=== PATIENT | male | born 1940 | race Caucasian/White ===

== ENCOUNTER 2017-12-11 20:08 | Observation (INO) | payer MEDICARE ==
[~2017-12-11] VITALS: Ht 170.2 cm; Wt 76.6 kg
[~2017-12-11 20:08] MED LIST: ARICEPT10 MG PO; ASPIRIN 81M81 MG/TA2 PO; BENAZEPRIL HCL/1 TAB PO; EXELON 1.5MG1.5 MG PO; FLOMAX 0.40.4 MG/CAP PO; HYDROXYZINE10 M1 PO; HYZAAR 25 MG-101 TAB PO; MACROBID 1100 MG/CAP PO; NAMENDA XR 28MG PO; NORCO 325 MG-51 TAB PO; PERCOCET 325 MG1 TA2 PO; SIMVASTATIN40 MG PO; ULTRAM 50MG TAB50 MG PO; ZOLOFT 25MG25 MG PO; ZOLOFT 50MG50 MG PO
[2017-12-11 20:37] LABS: BASO % 0.4 % (0.0-2.0); EOS # 0.2 (0.0-0.7); EOS % 1.9 % (0-4.0); GRAN # 7.4 (1.4-6.5); GRAN % 73.1 % (42.2-75.2); HEMATOCRIT 43.4 % (42.0-52.0); HEMOGLOBIN 14.5 g/dl (13.5-18.0); LYMPH # 1.8 (1.2-3.4); LYMPH % 17.9 % (20.0-51.0); MEAN CELL VOLUME 95 fl (80.0-100.0); MEAN CORPUSCULAR HEMOGLOBIN 32 pg (27.0-31.0); MEAN CORPUSCULAR HGB CONC 33 g/dl (33.0-37.0); MEAN PLATELET VOLUME 9.9 fl (7.4-10.4); MONO # 0.7 (0.1-0.6); MONO % 6.5 % (1.7-9.3); PLATELET COUNT 213 K/mm3 (130-400); RED BLOOD COUNT 4.57 M/mm3 (4.20-5.60); REDCELL DISTRIBUTION WIDTH-CV 13.3 % (11.5-14.5)
[2017-12-11 20:50] LABS: COLLECTION METHOD CLEAN CATCH
[2017-12-11 21:01] LABS: ALANINE AMINOTRANSFERASE 40 U/L (21-72); ALBUMIN 4.1 gm/dL (3.5-5.0); ANION GAP 10 mmol/L (7-16); BILIRUBIN,TOTAL 0.6 mg/dL (0.0-1.0); BLOOD UREA NITROGEN 30 mg/dL (9-20); CALCIUM 10.7 mg/dL (8.4-10.2); CARBON DIOXIDE 26 mmol/L (22-30); CHLORIDE 98 mmol/L (98-107); CREATININE, serum 0.85 mg/dL (0.66-1.25); GLUCOSE 111 mg/dL (74-106); POTASSIUM 3.3 mmol/L (3.4-5.0); SODIUM 134 mmol/L (137-145); TOTAL PROTEIN 7.4 gm/dL (6.4-8.2)
[2017-12-11 21:05] LABS: AST,SGOT 25 U/L (15-37)
[2017-12-11 21:06] LABS: ALKALINE PHOSPHATASE 130 U/L (50-136)
[2017-12-11 21:12] LABS: TROPONIN-I < 0.012 ng/mL (0.000-0.034)
[2017-12-11 21:22] LABS: MUCOUS Present /lpf; PH 5 (5-8); SQUAMOUS EPITHELIAL None Seen /hpf; URINE APPEARANCE Clear; URINE BACTERIA None Seen /hpf; URINE BILIRUBIN Negative (NEGATIVE); URINE BLOOD Negative (NEGATIVE); URINE COLOR Yellow; URINE GLUCOSE Negative (NEGATIVE); URINE KETONE Negative (NEGATIVE); URINE LEUKOCYTE ESTERASE Negative (NEGATIVE); URINE NITRATE Negative (NEGATIVE); URINE PROTEIN(semi-quant) Negative (NEGATIVE); URINE RBC 0-2 /hpf; URINE UROBILINOGEN Negative (NEGATIVE)
[2017-12-11] MEDS ORDERED: HYZAAR 25 MG-101 TAB PO (21:23)
[2017-12-11] MEDS ORDERED: NORVASC 5MG5 MG/TAB PO (21:24)
[2017-12-11] MEDS ORDERED: LUNESTA3 MG PO (21:25)
[2017-12-11] MEDS ORDERED: LIPITOR 40MG TA40 MG PO (21:25)
[2017-12-11] MEDS ORDERED: XYZAL5 MG PO (21:26)
[2017-12-12] MEDS ORDERED: EXELON6 MG PO (00:12)
[2017-12-12] MEDS ORDERED: ZOLOFT 100MG100 MG PO (00:13)
[2017-12-12 00:42] VITALS: BP 109/36; PULSE 104; TEMP 98.2
[2017-12-12 01:12] LABS: MAGNESIUM 1.5 mg/dL (1.6-2.3)
[2017-12-12 01:38] LABS: THYROID STIMULATING HORMONE 1.83 uIU/mL (0.465-4.680)
[2017-12-12 03:18] VITALS: BP 138/50; PULSE 63; TEMP 98.5
[2017-12-12 07:51] LABS: BASO # 0.1 (0.0-0.2); BASO % 0.9 % (0.0-2.0); EOS # 0.3 (0.0-0.7); EOS % 3.8 % (0-4.0); GRAN # 4.7 (1.4-6.5); GRAN % 63.3 % (42.2-75.2); HEMATOCRIT 41.2 % (42.0-52.0); HEMOGLOBIN 13.6 g/dl (13.5-18.0); LYMPH # 1.7 (1.2-3.4); LYMPH % 22.8 % (20.0-51.0); MEAN CELL VOLUME 96 fl (80.0-100.0); MEAN CORPUSCULAR HEMOGLOBIN 32 pg (27.0-31.0); MEAN CORPUSCULAR HGB CONC 33 g/dl (33.0-37.0); MEAN PLATELET VOLUME 10.1 fl (7.4-10.4); MONO # 0.7 (0.1-0.6); MONO % 8.8 % (1.7-9.3); PLATELET COUNT 209 K/mm3 (130-400); RED BLOOD COUNT 4.31 M/mm3 (4.20-5.60); REDCELL DISTRIBUTION WIDTH-CV 13.2 % (11.5-14.5)
[2017-12-12 08:02] LABS: CALCIUM 9.6 mg/dL (8.4-10.2); CREATININE, serum 0.72 mg/dL (0.66-1.25)
[2017-12-12 08:18] VITALS: BP 122/58; PULSE 58; TEMP 98.2
[2017-12-12 11:34] VITALS: BP 141/71; PULSE 63; TEMP 98.2
[2017-12-12 14:44] LABS: ALCOHOL(ethanol),MEDICAL < 10 mg/dL
[2017-12-12 15:58] VITALS: BP 101/44; PULSE 61; TEMP 98.5
[2017-12-12 18:52] VITALS: BP 115/67; PULSE 56; TEMP 98.4
[2017-12-13 00:29] VITALS: BP 106/59; PULSE 62; TEMP 98.5
[2017-12-13 04:28] VITALS: BP 127/78; PULSE 55; TEMP 98.5
[2017-12-13 07:39] VITALS: BP 106/67; PULSE 51; TEMP 98.7
[2017-12-13 10:55] LABS: BASO % 0.6 % (0.0-2.0); EOS # 0.3 (0.0-0.7); EOS % 3.6 % (0-4.0); GRAN # 4.6 (1.4-6.5); GRAN % 66.7 % (42.2-75.2); HEMATOCRIT 40.3 % (42.0-52.0); HEMOGLOBIN 13.1 g/dl (13.5-18.0); LYMPH # 1.4 (1.2-3.4); LYMPH % 20.7 % (20.0-51.0); MEAN CELL VOLUME 96 fl (80.0-100.0); MEAN CORPUSCULAR HEMOGLOBIN 31 pg (27.0-31.0); MEAN CORPUSCULAR HGB CONC 33 g/dl (33.0-37.0); MEAN PLATELET VOLUME 9.8 fl (7.4-10.4); MONO # 0.6 (0.1-0.6); MONO % 8.1 % (1.7-9.3); PLATELET COUNT 200 K/mm3 (130-400); RED BLOOD COUNT 4.19 M/mm3 (4.20-5.60); REDCELL DISTRIBUTION WIDTH-CV 13.3 % (11.5-14.5)
[2017-12-13 11:06] LABS: CALCIUM 9.8 mg/dL (8.4-10.2); CREATININE, serum 0.71 mg/dL (0.66-1.25); POTASSIUM 3.6 mmol/L (3.4-5.0)
[2017-12-13 11:52] VITALS: BP 147/60; PULSE 65; TEMP 97.9
[2017-12-13 16:19] VITALS: BP 123/67; PULSE 60; TEMP 98.2
[2017-12-13 19:39] VITALS: BP 133/64; PULSE 60; TEMP 98.9
[2017-12-14 00:02] VITALS: BP 114/53; PULSE 69; TEMP 98.3
[2017-12-14 07:56] VITALS: BP 146/68; PULSE 60; TEMP 98.6
[2017-12-14 11:31] VITALS: BP 124/64; PULSE 65; TEMP 98.3
[2017-12-14 14:26] LABS: FOLATE (FOLIC ACID) 6.8 ng/mL (7.0-31.4)
[2017-12-14 16:36] VITALS: BP 119/67; PULSE 64; TEMP 97.4
[2017-12-14 20:17] VITALS: BP 134/71; PULSE 68; TEMP 98.5
[2017-12-15 08:00] VITALS: BP 115/71; PULSE 65; TEMP 97.9
[2017-12-15] MEDS ORDERED: SEROQUEL 1100 MG/TAB PO (09:14)
[2017-12-15] MEDS ORDERED: FOLIC ACID 11 MG/TA1 PO (09:15)
== END 2017-12-15 11:40 | disposition home or self-care (01) ==
LOC: COL.ER 20:08 → MEDICAL 22:04
PROVIDERS: Emergency Medicine; Internal Medicine; Nurse Practitioner Family
DX: T42.6X1A Poisoning by other antiepileptic and sedative-hypnotic drugs, accidental (unintentional), initial encounter (principal); F05 Delirium due to known physiological condition; E87.1 Hypo-osmolality and hyponatremia; G47.00 Insomnia, unspecified; F01.50 Vascular dementia, unspecified severity, without behavioral disturbance, psychotic disturbance, mood disturbance, and anxiety; F03.90 Unspecified dementia, unspecified severity, without behavioral disturbance, psychotic disturbance, mood disturbance, and anxiety; Z23 Encounter for immunization; I10 Essential (primary) hypertension; E78.5 Hyperlipidemia, unspecified; Z87.891 Personal history of nicotine dependence; E87.6 Hypokalemia; E83.52 Hypercalcemia; R00.1 Bradycardia, unspecified; Z86.73 Personal history of transient ischemic attack (TIA), and cerebral infarction without residual deficits; F32.9 Major depressive disorder, single episode, unspecified; Z79.899 Other long term (current) drug therapy; Z79.82 Long term (current) use of aspirin; Z82.69 Family history of other diseases of the musculoskeletal system and connective tissue; R53.81 Other malaise
CPT/HCPCS: 99222-AI; 99232-AI; 99239; A9585; G0008; G0378; G8987-GO; G8988-GO; J1644; J3480; J7030

== ENCOUNTER 2018-11-26 17:18 | Emergency (ER) | payer MEDICARE ==
[~2018-11-26] VITALS: Ht 167.6 cm; Wt 71.8 kg
[~2018-11-26 17:18] MED LIST changes: +EXELON6 MG PO; +FOLIC ACID 11 MG/TA1 PO; +LIPITOR 40MG TA40 MG PO; +LUNESTA3 MG PO; +NORVASC 5MG5 MG/TAB PO; +SEROQUEL 1100 MG/TAB PO; +XYZAL5 MG PO; +ZOLOFT 100MG100 MG PO
[2018-11-26 17:20] VITALS: TEMP 97.7
[2018-11-26] MEDS ORDERED: NORVASC 5MG5 MG/TAB PO (17:42)
[2018-11-26 18:38] LABS: BASO % 0.3 % (0.0-2.0); EOS # 0.1 (0.0-0.7); EOS % 0.8 % (0-4.0); GRAN # 9.2 (1.4-6.5); GRAN % 81.9 % (42.2-75.2); HEMATOCRIT 49.2 % (42.0-52.0); HEMOGLOBIN 16.1 g/dl (13.5-18.0); LYMPH # 1.2 (1.2-3.4); LYMPH % 10.9 % (20.0-51.0); MEAN CELL VOLUME 97 fl (80.0-100.0); MEAN CORPUSCULAR HEMOGLOBIN 32 pg (27.0-31.0); MEAN CORPUSCULAR HGB CONC 33 g/dl (33.0-37.0); MEAN PLATELET VOLUME 10.7 fl (7.4-10.4); MONO # 0.6 (0.1-0.6); MONO % 5.7 % (1.7-9.3); PLATELET COUNT 204 K/mm3 (130-400); RED BLOOD COUNT 5.07 M/mm3 (4.20-5.60); REDCELL DISTRIBUTION WIDTH-CV 13.3 % (11.5-14.5)
[2018-11-26 18:40] LABS: INR 1.1 (0.8-3.0); PROTHROMBIN TIME 12.3 SECONDS (9.7-12.8)
[2018-11-26 18:45] LABS: ALANINE AMINOTRANSFERASE 24 U/L (21-72); ALBUMIN 4.3 gm/dL (3.5-5.0); ALKALINE PHOSPHATASE 153 U/L (50-136); ANION GAP 12 mmol/L (7-16); AST,SGOT 29 U/L (15-37); BILIRUBIN,TOTAL 0.6 mg/dL (0.0-1.0); BLOOD UREA NITROGEN 23 mg/dL (9-20); CALCIUM 10.7 mg/dL (8.4-10.2); CARBON DIOXIDE 24 mmol/L (22-30); CHLORIDE 105 mmol/L (98-107); CREATININE, serum 0.98 (0.66-1.25); GLUCOSE 103 mg/dL (74-106); POTASSIUM 3.8 mmol/L (3.4-5.0); SODIUM 141 mmol/L (137-145); TOTAL PROTEIN 7.5 gm/dL (6.4-8.2)
[2018-11-26 19:00] LABS: TROPONIN-I < 0.012 ng/mL (0.000-0.035)
[2018-11-26 19:33] VITALS: BP 124/80; PULSE 80
== END 2018-11-26 19:59 | disposition home or self-care (01) ==
LOC: COL.ER 17:18
PROVIDERS: Emergency Medicine
DX: S00.03XA Contusion of scalp, initial encounter (principal); F03.90 Unspecified dementia, unspecified severity, without behavioral disturbance, psychotic disturbance, mood disturbance, and anxiety; E78.5 Hyperlipidemia, unspecified; R40.2412 Glasgow coma scale score 13-15, at arrival to emergency department; W19.XXXA Unspecified fall, initial encounter; Y92.511 Restaurant or cafe as the place of occurrence of the external cause

== ENCOUNTER 2019-06-02 15:06 | Inpatient (IN) | payer MEDICARE ==
[~2019-06-02] VITALS: Ht 177.8 cm; Wt 63.4 kg
[2019-06-02 15:29] LABS: BASO # 0.1 (0.0-0.2); BASO % 0.4 % (0.0-2.0); EOS # 0.2 (0.0-0.7); EOS % 1.5 % (0-4.0); GRAN # 9.9 (1.4-6.5); GRAN % 78.4 % (42.2-75.2); HEMATOCRIT 45.5 % (42.0-52.0); HEMOGLOBIN 14.7 g/dl (13.5-18.0); LYMPH # 1.9 (1.2-3.4); LYMPH % 15.3 % (20.0-51.0); MEAN CELL VOLUME 100 fl (80.0-100.0); MEAN CORPUSCULAR HEMOGLOBIN 32 pg (27.0-31.0); MEAN CORPUSCULAR HGB CONC 32 g/dl (33.0-37.0); MEAN PLATELET VOLUME 10.6 fl (7.4-10.4); MONO # 0.5 (0.1-0.6); MONO % 4.2 % (1.7-9.3); PLATELET COUNT 216 K/mm3 (130-400); RED BLOOD COUNT 4.56 M/mm3 (4.20-5.60); REDCELL DISTRIBUTION WIDTH-CV 13.6 % (11.5-14.5)
[2019-06-02] MEDS ORDERED: SEROQUEL 2525 MG/TAB PO (15:57)
[2019-06-02] MEDS ORDERED: ZOLOFT 50MG50 MG PO (15:57)
[2019-06-02 16:04] LABS: INR 1.1 (0.8-3.0); PROTHROMBIN TIME 12.8 SECONDS (9.7-12.8)
[2019-06-02 16:07] LABS: PARTIAL THROMBOPLASTIN TIME 30.6 SECONDS (26.0-37.0)
[2019-06-02 16:11] LABS: ALANINE AMINOTRANSFERASE 28 U/L (4-49); ALBUMIN 3.8 gm/dL (3.5-5.0); ALKALINE PHOSPHATASE 122 U/L (50-136); ANION GAP 6 mmol/L (7-16); AST,SGOT 30 U/L (15-37); BILIRUBIN,TOTAL 0.6 mg/dL (0.0-1.0); BLOOD UREA NITROGEN 20 mg/dL (9-20); CALCIUM 9.9 mg/dL (8.4-10.2); CARBON DIOXIDE 26 mmol/L (22-30); CHLORIDE 109 mmol/L (98-107); GLUCOSE 146 mg/dL (74-106); POTASSIUM 3.8 mmol/L (3.4-5.0); SODIUM 141 mmol/L (137-145); TOTAL PROTEIN 6.7 gm/dL (6.4-8.2)
[2019-06-02 16:20] LABS: C-REACTIVE PROTEIN < 0.5 mg/dL (0.0-0.9)
[2019-06-02 20:27] VITALS: BP 122/65; PULSE 79; TEMP 97.7
--- NOTE | 2019-06-02 20:45 | NUR ---
Received report from CHARLES Hernandez. Assessment complete. Alert. Not oriented to , place, time, or situation. Cooperative with care. Follows commands. Meds administered. NAD. Pt pulled out IV to RAC with NS infusing. 20G IV restarted to LFA and NS infusing. Fall precautions in place, bed alarm on. Call light within reach. Will monitor pt.
[2019-06-02 22:47] LABS: HEMATOCRIT 40.5 % (42.0-52.0)
--- NOTE | 2019-06-02 23:00 | NUR ---
Pt consumed all bowel prep.
[2019-06-03] VITALS (7 sets, daily range): BP systolic 96–160; BP diastolic 50–78; PULSE 50–63; TEMP 97.6–98.1
--- NOTE | 2019-06-03 04:09 | NUR ---
Assisted pt to BSC with medium amount of dark brown, red-tinged liquid BM. Pt back to bed. Bed alarm set. Call light within reach. NAD.
--- NOTE | 2019-06-03 06:19 | NUR ---
Pt made no complaints during this shift. 1+ assist to BSC x3 during the night. NPO since midnight. Bed alarm set. Call light within reach.
[2019-06-03 06:31] LABS: BASO % 0.6 % (0.0-2.0); EOS # 0.2 (0.0-0.7); EOS % 3.6 % (0-4.0); GRAN # 4.2 (1.4-6.5); GRAN % 62.7 % (42.2-75.2); HEMATOCRIT 38.9 % (42.0-52.0); HEMOGLOBIN 12.3 g/dl (13.5-18.0); LYMPH # 1.6 (1.2-3.4); LYMPH % 23.8 % (20.0-51.0); MEAN CELL VOLUME 101 fl (80.0-100.0); MEAN CORPUSCULAR HEMOGLOBIN 32 pg (27.0-31.0); MEAN CORPUSCULAR HGB CONC 32 g/dl (33.0-37.0); MEAN PLATELET VOLUME 10.7 fl (7.4-10.4); MONO # 0.6 (0.1-0.6); MONO % 9.2 % (1.7-9.3); PLATELET COUNT 169 K/mm3 (130-400); RED BLOOD COUNT 3.84 M/mm3 (4.20-5.60); REDCELL DISTRIBUTION WIDTH-CV 13.9 % (11.5-14.5)
[2019-06-03 06:47] LABS: CALCIUM 9.6 mg/dL (8.4-10.2); CREATININE, serum 0.75 (0.66-1.25); MAGNESIUM 1.8 mg/dL (1.6-2.3); POTASSIUM 3.6 mmol/L (3.4-5.0)
--- NOTE | 2019-06-03 07:08 | NUR ---
Report given to CHARLES Duarte.
--- NOTE | 2019-06-03 09:37 | NUR ---
Assessment complete. Pt lying in bed awake. Pt is alert, not oriented to anything but his name. He is pleasant and states that he feels great. Fluids for colonoscopy have been started, have not head from Endo yet. No pain or discomfort reported. Pt is still NPO. No further needs were expressed at this time. Call light is in reach.
--- NOTE | 2019-06-03 11:54 | NUR ---
Disaster Recovery Specialist collaborated with CHARLES Duarte who advised patient is confused and has dementia. SW contacted patient's , Jocelyn (ph#[phone]) to discuss discharge planning. Patient sees Dr. Pedroza for primary care and sees Dr. Dickens for neurology. [facility]. While patient's Jocelyn is at work, patient's brother and mother in law provide patient with support and supervision. Jocelyn reports she assists patient ADLS. Jocelyn reports this arrangement has been working for patient and should continue to work as long as patient stays healthy. Patient does not currently use any DME however Jocelyn reports she has been trying to obtain a walker or cane for patient but that he does not feel like he needs any DME. Jocelyn is patient's DPOA-HC. At this time plan is for patient to return home upon discharge. SW to continue to follow to ensure safe discharge.
--- NOTE | 2019-06-03 11:58 | NUR ---
Crocheter Hand spoke with STEF Johnson who will order PT/OT for patient.
--- NOTE | 2019-06-03 14:08 | NUR ---
First visit from the customer supply coordinator. No needs right now.
--- NOTE | 2019-06-03 15:05 | NUR ---
Cross Country/Track And Field Coach spoke with patient's Jocelyn who expressed interest in Home Health services upon discharge. Jocelyn selected [facility] and JW faxed referral. JW spoke with Larissa at [facility] who advised they can accept referral. JW provided update to Jocelyn and STEF Johnson. JW to continue to follow.
--- NOTE | 2019-06-03 17:50 | NUR ---
Pt had a good day. Recovered well from colonoscopy/EGD. Continues to be very confused but cooperative. Needs assistance while eating. Attempted to obtain UA but pt has a very hard time voiding in urinal and hat and refused. No complaints of pain or discomfort through out the day. LR currently running @ 75ml/hr. Takes his medications well, prefers to only take 2 at a time. NO other needs expressed at this time. Call light in reach. Fall precautions in place. PAtient in site from [facility].
--- NOTE | 2019-06-03 20:00 | NUR ---
Received report from CHARLES Duarte. Alert to self, unaware of place, time and situation. Pleasant and cooperative with care. Meds administered. Denies any pain. NAD. Fall precautions in place, bed alarm set. IV to LFA intact with fluids infusing. Call light within reach. Made pt comfortable.
--- NOTE | 2019-06-03 21:00 | NUR ---
Pt pulled out IV to LFA with NS infusing, catheter tip intact. 22G IV restarted to RH and fluids restarted, tolerated well.
--- NOTE | 2019-06-04 02:47 | NUR ---
Standby assist to BR. Made pt comfortable in bed. Bed alarm set. Call light within reach.
[2019-06-04 03:18] VITALS: BP 131/79; PULSE 52; TEMP 97.6
--- NOTE | 2019-06-04 04:15 | NUR ---
Pt was found picking at his IV site to . IV was taken out by pt with LR infusing,catheter intact. Restarted 22G to [facility], tolerated well, fluids restarted. made pt comfortable, call light within reach, bed alarm set.
[2019-06-04 06:29] LABS: BASO # 0.1 (0.0-0.2); BASO % 1.1 % (0.0-2.0); EOS # 0.4 (0.0-0.7); EOS % 6.3 % (0-4.0); GRAN # 3.3 (1.4-6.5); GRAN % 58.4 % (42.2-75.2); HEMOGLOBIN 10.7 g/dl (13.5-18.0); LYMPH # 1.5 (1.2-3.4); LYMPH % 26.2 % (20.0-51.0); MEAN CELL VOLUME 100 fl (80.0-100.0); MEAN CORPUSCULAR HEMOGLOBIN 32 pg (27.0-31.0); MEAN CORPUSCULAR HGB CONC 32 g/dl (33.0-37.0); MEAN PLATELET VOLUME 11.1 fl (7.4-10.4); MONO # 0.4 (0.1-0.6); MONO % 7.6 % (1.7-9.3); PLATELET COUNT 152 K/mm3 (130-400); RED BLOOD COUNT 3.35 M/mm3 (4.20-5.60)
[2019-06-04 06:44] LABS: HEMATOCRIT 33.6 % (42.0-52.0)
[2019-06-04 06:50] LABS: CALCIUM 9.4 mg/dL (8.4-10.2); CREATININE, serum 0.66 (0.66-1.25); POTASSIUM 3.5 mmol/L (3.4-5.0)
--- NOTE | 2019-06-04 07:02 | NUR ---
Report given to CHARLES Watkins.
[2019-06-04 07:29] VITALS: BP 121/58; PULSE 57; TEMP 97.6
--- NOTE | 2019-06-04 10:21 | NUR ---
PATIENT IS ALERT AND ORIENTED. FORGET HIS YEAR. NEEDED HELP TO EAT BREAKFAST. LIMITED USE OF RIGHT HAND. PATIENT IS SITTING DOWN IN CHAIR
[2019-06-04 11:29] VITALS: BP 124/51; PULSE 49; TEMP 98.1
[2019-06-04 14:59] LABS: COLLECTION METHOD CATHETER
[2019-06-04 15:06] LABS: MUCOUS Present /lpf; PH 5 (5-8); SQUAMOUS EPITHELIAL None Seen /hpf; URINE APPEARANCE Clear; URINE BACTERIA None Seen /hpf; URINE BILIRUBIN Negative (NEGATIVE); URINE BLOOD 1+ (NEGATIVE); URINE COLOR Straw; URINE GLUCOSE Negative (NEGATIVE); URINE KETONE Negative (NEGATIVE); URINE LEUKOCYTE ESTERASE Negative (NEGATIVE); URINE NITRATE Negative (NEGATIVE); URINE PROTEIN(semi-quant) Negative (NEGATIVE); URINE RBC 0-2 /hpf; URINE UROBILINOGEN Negative (NEGATIVE)
[2019-06-04 16:09] VITALS: BP 131/50; PULSE 51; TEMP 98
[2019-06-04 19:19] VITALS: BP 116/60; PULSE 62; TEMP 97.7
--- NOTE | 2019-06-04 19:45 | NUR ---
patient became confused later in the afternoon. he removed his IV. STEF Johnson changed PPI IV to PO. diet was changed from clear liquid to mechanical soft diet. hgb is at 10.7. patiet was straight cath for UA sample. right unilateral hand ultrasound was done. No dvt present. edema in right hand reduced. patient is still have bright red stool. STEF Johnson was notified.
--- NOTE | 2019-06-04 20:00 | NUR ---
Initial shift assessment done- very confused, restless in the bed- attempting to get out of bed- walked to bathroom with one assist- voiding, back to bed, will give night meds at this time- Bed in low position, bed alarm on, close to nsg station- does not want a night time snack-VSS
[2019-06-05 00:09] VITALS: BP 141/77; PULSE 96; TEMP 98.3
[2019-06-05 00:26] VITALS: BP 117/53; PULSE 52; TEMP 97.7
[2019-06-05 04:47] VITALS: BP 102/56; PULSE 51; TEMP 97.5
[2019-06-05 06:14] LABS: BASO % 0.7 % (0.0-2.0); EOS # 0.4 (0.0-0.7); EOS % 6.5 % (0-4.0); GRAN # 2.8 (1.4-6.5); GRAN % 52.8 % (42.2-75.2); HEMOGLOBIN 10.8 g/dl (13.5-18.0); LYMPH # 1.6 (1.2-3.4); LYMPH % 30.5 % (20.0-51.0); MEAN CELL VOLUME 100 fl (80.0-100.0); MEAN CORPUSCULAR HEMOGLOBIN 32 pg (27.0-31.0); MEAN CORPUSCULAR HGB CONC 32 g/dl (33.0-37.0); MEAN PLATELET VOLUME 10.7 fl (7.4-10.4); MONO # 0.5 (0.1-0.6); MONO % 9.3 % (1.7-9.3); PLATELET COUNT 150 K/mm3 (130-400); RED BLOOD COUNT 3.35 M/mm3 (4.20-5.60); REDCELL DISTRIBUTION WIDTH-CV 13.9 % (11.5-14.5)
[2019-06-05 06:21] LABS: HEMATOCRIT 33.4 % (42.0-52.0)
[2019-06-05 06:27] LABS: CALCIUM 9.4 mg/dL (8.4-10.2); CREATININE, serum 0.65 (0.66-1.25); POTASSIUM 3.4 mmol/L (3.4-5.0)
--- NOTE | 2019-06-05 06:31 | NUR ---
Quiet night-- slept the entire night after evening dose of Seroquel was given--VSS, Up to bathroom this morning with one assist.
[2019-06-05 08:02] VITALS: BP 162/76; PULSE 50; TEMP 98
[2019-06-05] MEDS ORDERED: PROTONIX 40MG T40 MG PO (08:55)
--- NOTE | 2019-06-05 09:47 | NUR ---
Pt awake upon entry, pleasant this morning, oriented to self, shift assessment complete, left Pt call light in reach, bed in lowest position, alarm on.
--- NOTE | 2019-06-05 10:34 | NUR ---
JW contacted Jocelyn about DC home with Home health with [facility]. reports that she decided that due the covid concerns, she did not want anyone in her home right now. indicated that she is not sure if she can provide adequate care for him at this time with her work scheduled. is will to have patient screened for [facility] and wants to know what insurance would pay for her. JW sent referral to [facility] and [facility]. Awaiting Screen.
[2019-06-05 11:57] VITALS: BP 143/56; PULSE 62; TEMP 97.7
--- NOTE | 2019-06-05 12:40 | NUR ---
[facility]- Accepted patient today for [facility]. Patient can transfer today. JW reports to Wendy. Awaiting DC orders, and transfer time. is was notified and agreed to plan.
[2019-06-05 12:47] VITALS: BP 143/56; PULSE 62; TEMP 97.7
--- NOTE | 2019-06-05 14:35 | NUR ---
[facility] will send transportation at 2:45 for DC. Nothing follows.
--- NOTE | 2019-06-05 15:15 | NUR ---
Pt transferred to [facility] @ [facility], PCT escorted Pt via to entrance, Pt left via [facility] transportation.
== END 2019-06-05 15:15 | DRG 379 ==
LOC: COL.ER 15:06 → SURG 16:47 → MEDICAL 16:47
PROVIDERS: Emergency Medicine; Internal Medicine Gastroenterology; Physician Assistant; ADMIT Internal Medicine
PROC: 0DJD8ZZ Inspection of Lower Intestinal Tract, Via Natural or Artificial Opening Endoscopic (ICD-10-PCS; principal; 2019-06-03 12:45)
DX: K57.91 Diverticulosis of intestine, part unspecified, without perforation or abscess with bleeding (principal); F03.90 Unspecified dementia, unspecified severity, without behavioral disturbance, psychotic disturbance, mood disturbance, and anxiety; F32.9 Major depressive disorder, single episode, unspecified; E78.5 Hyperlipidemia, unspecified; F17.200 Nicotine dependence, unspecified, uncomplicated; I95.9 Hypotension, unspecified; R73.9 Hyperglycemia, unspecified; D72.829 Elevated white blood cell count, unspecified; D50.0 Iron deficiency anemia secondary to blood loss (chronic); R13.10 Dysphagia, unspecified; Z86.73 Personal history of transient ischemic attack (TIA), and cerebral infarction without residual deficits; Z98.52 Vasectomy status; Z87.442 Personal history of urinary calculi
CPT/HCPCS: 99222-AI; 99232-AI; 99239; C9113; J2704; J7030; J7120; Q9967